=== PATIENT | male | born 1975 | race Caucasian/White ===

== ENCOUNTER 2024-08-01 18:16 | Emergency (ER) | payer OTHER, SELFPAY ==
[2024-08-01 18:32] VITALS: BP 133/74; PULSE 75; RESP 20; TEMP 37.4; O2SAT 98
--- NOTE | 2024-08-01 18:39 | ED.GENADULT ---
HPI - General Adult General Chief complaint: Skin/Abscess/Foreign Body Stated complaint: extreme rash breakout Time Seen by Provider: 08/01/24 18:40 Source: patient Mode of arrival: ambulatory Limitations: no limitations History of Present Illness HPI narrative: 49-year-old male patient presents to the [facility] with a generalized rash that started abruptly late last night early this morning. Patient denies any fevers, body aches or chills. Patient states he does work at the [employer] at [employer] [facility]. 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 Patient states that the rash is not itchy but it does burn at times. Patient 1st noticed the rash behind the ear and then started breaking out on the hands feet and now has rash all over head, face around mouth, inside the mouth, hands, bilateral upper extremities, bilateral lower extremities and bottom of feet. Related Data Home Medications Medication Instructions Recorded Confirmed losartan 50 mg tablet 50 mg PO DAILY 08/01/24 08/01/24 Allergies Allergy/AdvReac Type Severity Reaction Status Date / Time No Known Allergies Allergy Verified 08/01/24 18:42 Review of Systems Review of Systems: CONSTITUTIONAL: Denies fever, chills, or sweats. EYES: Denies visual changes, redness, or discharge. ENT: Denies rhinorrhea, congestion, sore throat, or otalgia. CARDIOVASCULAR: Denies chest pain, palpitations, or edema. RESPIRATORY: Denies cough or dyspnea. GASTROINTESTINAL: Denies abdominal pain, nausea, vomiting, or diarrhea. GENITOURINARY: Denies dysuria or hematuria. SKIN: Positive blistery painful rash , denies itching. MUSCULOSKELETAL: Denies back pain, joint pain, or myalgia. NEUROLOGIC: Denies headache, numbness, or weakness. PSYCHIATRIC: Denies anxiety or depression. [facility] Past Medical History Medical History (Updated 08/01/24 @ 19:24 by REBECCA Aguirre) Herpes simplex type II infection Comments At the time of my signature I agree with nursing past medical history, surgical, social, and family history. There is no relevant family history pertinent to the presenting complaint. Exam Narrative: GENERAL: Well-appearing, well-nourished, and in no acute distress. HEAD: Normocephalic, atraumatic. EYES: PERRLA and EOMI. ENT: Nares clear, no rhinorrhea or epistaxis. Mucous membranes moist. NECK: Supple. No lymphadenopathy CHEST: Clear to auscultation. No respiratory distress. HEART: Regular rate and rhythm. No murmur heard. Normal peripheral pulses. ABDOMEN: Soft, nontender, nondistended, normal active bowel sounds. EXTREMITIES: Normal range of motion. No edema. SKIN: Warm, dry, patient has blistery rash noted to bilateral hands in between fingers, at the bottoms of the feet and there is multiple blisters noted on the roof of the mouth and on the oral mucosa. There are rashes appears to spread to bilateral upper extremities, the face around the lips and bilateral lower extremities. No open wounds or drainage noted NEURO: No focal deficits. Alert and oriented x3. Course Course Level of Care: Express Care Visit Vital Signs Vital signs: Vital Signs Temperature 37.4 C 08/01/24 18:32 Pulse Rate 75 08/01/24 18:32 Respiratory Rate 20 08/01/24 18:32 Blood Pressure 133/74 08/01/24 18:32 Pulse Oximetry 98 08/01/24 18:32 Oxygen Delivery Room Air 08/01/24 18:32 Temperature 37.4 C 08/01/24 18:32 Pulse Rate 75 08/01/24 18:32 Respiratory Rate 20 08/01/24 18:32 Blood Pressure 133/74 08/01/24 18:32 Pulse Oximetry 98 08/01/24 18:32 Oxygen Delivery Room Air 08/01/24 18:32 Vital signs reviewed. Medical Decision Making MDM Narrative Medical decision making narrative: discussed with patient it does appear that he most likely has [id number] disease especially since this is a blistery rash and it does not itch and we can see it on the palms of the hands, bottom of the fe
== END 2024-08-01 19:23 | disposition home or self-care (01) ==
PROVIDERS: Emergency Provider Nurse Practitioner Family; PCP Nurse Practitioner Family
DX: B08.4 Enteroviral vesicular stomatitis with exanthem (principal)
CPT/HCPCS: 99203; G0463